=== PATIENT | male | born 1960 | race Caucasian/White ===

== ENCOUNTER 2017-05-26 21:04 | Inpatient (IN) ==
[2017-05-26] MEDS ORDERED: cefTRIAXone 1,000 MG in SODIUM CHLORIDE 0.9% 100 ML IV STA (22:27)
--- NOTE | 2017-05-26 22:28 | Emergency Department Note ---
IBelinda Mantricia, am scribing for, and in the presence of, Nilsa Llanos DO 22:02. IViet Debra, DO, personally performed the services described in this documentation, ascribed by Jeannette Trevino in my presence, and it is both accurate and complete . Arrival - Arrival Chief Complaint: Non-Specific Stated Complaint: staph infection ED Nursing Triage Note: TO ER PER WC WITH C/O POSSIBLE STAPH INFECTION TO LEFT KNEE. STATES STARTED 3 DAYS AGO, THINKS MAYBE STARTED A POSSIBLE SPIDER BITE. REPORTS HAS HAD STAPH IN THE PAST AND IS PRONE TO GETTING STAPH INFECTIONS SINCE. LEFT KNEE SWOLLEN AND RED. HALF DOLLAR SIZE WOUND TO LEFT KNEE NOTED. PATIENT REPORTS WOUND STARTED DRAINING TODAY AND HAS GONE DOWN IN SIZE SOME SINCE THEN. Mode of Arrival: Wheelchair Limitations: No Limitations Source: Patient - History of Present Illness HPI Narrative: Pt is a 57 y/o white male arriving to ED via wheelchair with c/o left knee wound that onset 3 days ago. He reports that 3 days ago he had a small bump on his knee and what now has turned into a half dollar size wound. He states that it looks way better now than it did earlier today; it has begun to drain and the swelling has went down. Pt has a Hx of staph infection and reports that he thinks he has had another flare up. Pt was hospitalized 2 months ago with staph. He denies a PMHx of DM. He admits to having no PCP. No other complaints were reported to ED. Onset (ago): day(s) Consistency: constant Severity: mild Allergies/Adverse Reactions: Allergies Allergy/AdvReac Type Severity Reaction Status Date / Time Sulfa (Sulfonamide Allergy Severe Fever Verified 06/02/17 14:46 Antibiotics) Home Medications: Home Medications Medication Instructions Recorded Confirmed Type Clindamycin Cap [Cleocin Cap] 300 mg PO TID #21 capsule 06/03/17 Rx HYDROcodone/ACETAMIN 5-325 [[place] 1 tablet PO Q6H PRN #10 tablet 06/03/17 Rx 5-325] Review of System - Review of System Constitutional: Absent: chills, diaphoresis, fever Respiratory: Absent: cough Cardiovascular: Absent: chest pain Gastrointestinal: Absent: abdominal pain, nausea, vomiting, diarrhea Musculoskeletal: Present: leg pain (left knee). Absent: arm pain, back pain, neck pain Skin: Present: other (possible staph on left knee). Absent: rash, lesions Medical,Surgical,& Family Hx - Social History Smoking Status: Current every day smoker Frequency of Alcohol Use: Occasionally Type of Drug Use: None Exam Vital Signs: Vital Signs Temperature 97.8 F 06/03/17 11:20 Pulse Rate 54 L 06/03/17 11:20 Respiratory Rate 18 06/03/17 11:20 Blood Pressure 103/60 06/03/17 11:20 O2 Sat by Pulse Oximetry 96 06/03/17 11:20 - General General appearance: alert, in no apparent distress - Head Head exam: Present: atraumatic, normocephalic, normal inspection - Eye Eye exam: Present: normal appearance, PERRL, EOMI - ENT ENT exam: Present: normal exam, normal oropharynx, mucous membranes moist, TM's normal bilaterally, normal external ear exam - Neck Neck exam: Present: normal inspection, full ROM, trachea midline. Absent: tenderness - Chest Chest inspection: Present: normal inspection, symmetric chest wall rise. Absent : tenderness - Respiratory Respiratory exam: Present: normal lung sounds bilaterally - Cardiovascular Cardiovascular exam: Present: regular rate, normal rhythm, normal heart sounds - Abdominal Exam Abdominal exam: Present: soft, normal bowel sounds. Absent: distention, tenderness, guarding, rebound - Expanded Lower Left Lower Hip/Pelvis exam: Present: normal inspection Upper leg exam: Present: normal inspection Knee exam: Present: tenderness, swelling, erythema (with drainage), other (palm size wound) Lower leg exam: Present: normal inspection Ankle exam: Present: normal inspection Foot/toe exam: Present: normal inspection - Back Exam Back exam: Present: normal inspection, full ROM. Absent: tenderness - Neurological Exam Neurological exam: Present: alert, oriented X3, CN II-XII intact, normal gait, reflexes normal - Psychiatric Psychiatric exam: Present: normal affect, normal mood - Skin Skin exam: Present: warm, dry, intact, normal color Results - Labs CBC & BMP: 06/03/17 04:32 06/03/17 04:32 Disposition Case discussed with: patient Disposition: Still a Patient Condition: Stable New Prescriptions: Rx's Medication Instructions Recorded Clindamycin Cap [Cleocin Cap] 300 mg PO TID #21 capsule 06/03/17 HYDROcodone/ACETAMIN 5-325 [[place] 1 tablet PO Q6H PRN #10 tablet 06/03/17 5-325]
[2017-05-26] MEDS ORDERED: cefTRIAXone 1,000 MG VIAL ONE (22:30)
[2017-05-26 23:08] LABS: Basophils # 0.1 10*3/uL (0.0-0.2); Basophils % 0.5 % (0.0-0.8); Eosinophils # 0.1 10*3/uL (0.0-0.87); Eosinophils % 0.6 % (0.00-10.9); Hematocrit 45.9 VOL% (42.0-52.0); Hemoglobin 16.1 GM/DL (14.0-18.0); Immature Granulocytes % 0.5 %; Immature Granulocytes Absolute 0.07 #; Lymphocytes % 15.2 % (21.2-54.2); Mean Corpuscular HGB Conc 35.1 GM/DL (32-36); Mean Corpuscular Hemoglobin 31 PG (27-34); Mean Platelet Volume 10.3 FL (9.6-12.0); Monocytes # 1.6 10*3/uL (0.11-0.8); Neutrophils # 9.2 10*3/uL (1.4-7.4); Neutrophils % 71.2 % (38.7-73.9); Platelet Count 196 T/CUMM (130-400); Red Blood Count 5.16 MC/CUMM (3.8-5.5); Red Cell Distribution Width 14.6 % (9.3-17.3); White Blood Count 12.9 T/CUMM (4-12)
[2017-05-26] MEDS ORDERED: HYDROmorphone 2 MG/1 ML VIAL ONE (23:25)
[2017-05-26] MEDS ORDERED: ONDANSETRON 4 MG/2 ML VIAL ONE (23:25)
[2017-05-26] MEDS: HYDROmorphone 2 MG/1 ML VIAL IV STA (23:26)
[2017-05-26] MEDS: ONDANSETRON 4 MG/2 ML VIAL IV STA (23:26)
[2017-05-26 23:33] LABS: Bilirubin,Total 0.8 MG/DL (0.2-1.0); Calcium 8.5 MG/DL (8.5-10.1); Osmolality,Calculated 267.2 MOS/KG (273-304); Potassium 3.6 MMOL/L (3.5-5.1)
[2017-05-26] MEDS ORDERED: ONDANSETRON 4 MG/2 ML VIAL IV PRN (23:52)
[2017-05-27] MEDS ORDERED: ACETAMINOPHEN 325 MG TABLET PO ONE (00:01)
--- NOTE | 2017-05-27 00:14 | Hospitalist History & Physical ---
Assessment and Plan (1) Cellulitis of knee Status: Acute Assessment and plan: Our plan for this patient will be admitting him to our service. I will start him on teflora. I will consult orthopedics for their evaluation. I will recheck labs in the morning. Current Visit: Yes History of Present Illness Chief complaint: Knee pain and erythema History of present illness: Mr. Hannah is a 57 year old male with no past medical history presents to our ER complaining about erythematous swollen knee. Patient did report a history of 2 other episodes of staph infections but has no chronic medical problems. He says approximately 3 days ago he noticed a bump on his knee. He did not think much about it at that time and it became red and swollen. He had a abscess on it that burst and has been draining ever since. He reports it is been very painful when he tries to stand. He reports limited range of motion of his knee. I was consulted to admit him through the emergency room. Allergies Allergy/AdvReac Type Severity Reaction Status Date / Time No Known Allergies Allergy Verified 05/26/17 21:30 Medical,Surgical,& Family Hx - Medical History Medical History: noncontributory (None) - Surgical History Surgical History: noncontributory (none) - Family History Family History: Reports;: Family Heart Disease - Social History Smoking Status: Current every day smoker Frequency of Alcohol Use: Occasionally Type of Drug Use: None 12 point system: reviewed and no additional remarkable complaints except as stated Exam - Constitutional Vitals: Period Temp Pulse Resp BP Sys/Metz Pulse Ox Last 24 Hr 99.7 F-99.7 F 93-93 18-18 113-113/73-73 97 General appearance: normal weight - Head Head exam: Present: normal inspection - Eye Eye exam: Present: EOMI Pupils: Present: ROSHNI - ENT ENT exam: Present: normal exam - Neck Neck exam: Present: normal inspection - Respiratory Respiratory exam: Present: clear to auscultation bilaterally - Cardiovascular Cardiovascular exam: Present: regular rate and rhythm - GI/Abdominal GI/Abdominal exam: Present: normal bowel sounds - Extremities Exam Extremities exam: Present: other (Patient's rightknee is swollen. It is erythematous. It has a area approximately the size of a 4 cm that is draining) - Back Exam Back exam: Present: normal inspection - Neurological Exam Neurological exam: Present: alert, oriented X3 - Psychiatric Psychiatric exam: Present: normal affect, normal mood Results - Labs CBC & BMP: 05/26/17 22:59 05/26/17 22:59
[2017-05-27] MEDS: ONDANSETRON 4 MG/2 ML VIAL IV STA (01:03)
[2017-05-27] MEDS: HYDROmorphone 2 MG/1 ML VIAL IV STA (01:04)
[2017-05-27] MEDS ORDERED: ACETAMINOPHEN 325 MG TABLET ONE (01:06)
--- NOTE | 2017-05-27 06:41 | XRay Report ---
Exam: XR knee 2V LT Date: 05/26/2017 10:25 PM Indication: Knee pain swelling Comparison: None Technical: AP lateral Findings: Soft tissue swelling is present. The distal femur proximal tibia and fibula reveal no fractures. Slight medial joint space narrowing and patellofemoral joint space narrowing is present. Tiny joint effusion present. Impression: 1. No fracture dislocation 2. Soft tissue swelling with small joint effusion 3. Mild degenerative arthritic changes PROCEDURE INTERPRETED AT [facility] DEPARTMENT OF RADIOLOGY Final Report Signed by: Dr. Elvis Mcfarland
[2017-05-27 07:43] LABS: Basophils # 0.1 10*3/uL (0.0-0.2); Basophils % 0.7 % (0.0-0.8); Eosinophils # 0.2 10*3/uL (0.0-0.87); Eosinophils % 2.1 % (0.00-10.9); Hemoglobin 13.7 GM/DL (14.0-18.0); Immature Granulocytes % 0.4 %; Immature Granulocytes Absolute 0.05 #; Lymphocytes # 1.9 10*3/uL (1.4-4.0); Lymphocytes % 16.5 % (21.2-54.2); Mean Corpuscular HGB Conc 34.3 GM/DL (32-36); Mean Corpuscular Hemoglobin 31 PG (27-34); Mean Corpuscular Volume 89.7 FL (87-102); Mean Platelet Volume 12.2 FL (9.6-12.0); Monocytes # 1.6 10*3/uL (0.11-0.8); Neutrophils # 7.4 10*3/uL (1.4-7.4); Neutrophils % 66.3 % (38.7-73.9); Platelet Count 163 T/CUMM (130-400); Red Blood Count 4.46 MC/CUMM (3.8-5.5); Red Cell Distribution Width 14.6 % (9.3-17.3); White Blood Count 11.2 T/CUMM (4-12)
[2017-05-27 08:13] LABS: Calcium 8.4 MG/DL (8.5-10.1); Osmolality,Calculated 270.8 MOS/KG (273-304); Potassium 3.5 MMOL/L (3.5-5.1)
[2017-05-27] MEDS: PANTOPRAZOLE 40 MG TABLET PO SCH (08:32)
[2017-05-27] MEDS: CEFTAROLINE 600 MG in SODIUM CHLORIDE 0.9% 100 ML IV SCH ×2 (09:01→20:53)
--- NOTE | 2017-05-27 13:44 | Orthopedic Consult Note ---
History of Present Illness Chief complaint: Cellulitis left knee History of present illness: Mr. Hannah is a 57 year old male whom I was asked to see because of a cellulitis in the left knee. this had its onset about 4 days earlier. The patient did not recall any specific event. However, he works around [employer] and get scraped and abraded a lot. He also has a past history of staph infections to in the recent year or so 1 of which was a few months ago. Over the last 3 days it got worse and he presented to [facility] yesterday evening and was admitted and placed on IV antibiotics. Initially Rocephin in the emergency room and then switched to Teflaro IV every 12 hours. Patient states that his knee seems better than yesterday because it spontaneously started draining. Past history: He lost the tip of his right thumb in a saw injury. 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 Says it is difficult for him to get a regular job because of being blind in one. Review of systems: Recurrent staph infections. No known diabetes. Orthopedic examination: Most recent temp is 100.4. He has an area of skin eruption 2.5 cm in diameter directly over the left patella surrounding that he has a zone of erythema 5 cm in diameter. There is some mild tissue puffiness but no effusion and nothing to suggest extension of the infection into the joint. No significant lymphadenopathy on that side Impression: Cellulitis left knee Recommendations and discussion 1 at the moment I see no abscess formation or significant extension of the infection into the joint. Thus I do not see a surgical indication currently. 2. He is on ideal antibiotic management 3 we will check his cultures have been done 4 we will follow and if abscess formation develops, there is an effusion indicating extension into the joint, or worsening of the insect infection we would consider surgical drainage but for the moment we will continue antibiotic therapy Allergies Allergy/AdvReac Type Severity Reaction Status Date / Time No Known Allergies Allergy Verified 05/26/17 21:30 Medical,Surgical,& Family Hx - Medical History HEENT: History of: Ear Problem (deaf in left ear), Eye Problem (blind in right eye) - Family History Family History: Reports;: Family Heart Disease - Social History Smoking Status: Current every day smoker Frequency of Alcohol Use: Occasionally Type of Drug Use: None Exam - Constitutional Vitals: Period Temp Pulse Resp BP Sys/Mezt Pulse Ox Last 24 Hr 97.9 F-100.4 F 60-93 18-20 99-115/61-73 93-99 Results - Labs CBC & BMP: 05/27/17 07:06 05/27/17 07:06
--- NOTE | 2017-05-28 08:34 | Orthopedic Progress Note ---
Orthopedics - Subjective Interval history: The patient is alert and oriented. His maximum temperature for 24 hours is remaining under 100 and is steadily falling. His knee feels better. Zone of erythema about the left knee is diminishing. There is no evidence of a joint effusion which would indicate deep infection. Impression: Cellulitis left knee responding to antibiotics Recommendations: Continue IV antibiotics. He is not well enough to be discharged on oral antibiotics. No surgical indications at the moment Exam - Constitutional Vitals: Period Temp Pulse Resp BP Sys/Metz Pulse Ox Last 24 Hr 97.5 F-100.7 F 70-81 15-20 99-108/58-70 93-100 Results - Labs CBC & BMP: 05/27/17 07:06 05/27/17 07:06
[2017-05-28] MEDS: CEFTAROLINE 600 MG in SODIUM CHLORIDE 0.9% 100 ML IV SCH ×2 (09:46→21:28)
[2017-05-28] MEDS: PANTOPRAZOLE 40 MG TABLET PO SCH (09:46)
[2017-05-28] MEDS: ENOXAPARIN 40 MG/0.4 ML SYRINGE SUBCUT SCH (09:46)
--- NOTE | 2017-05-28 14:31 | Hospitalist Progress Note ---
Hospitalist: Subjective Interval history: The patient was admitted admitted with cellulitis of the left knee. He reports less swelling and pain in the left knee with IV antibiotics. Exam - Constitutional Vitals: Period Temp Pulse Resp BP Sys/Metz Pulse Ox Last 24 Hr 97.5 F-100.7 F 70-81 15-20 99-108/58-70 93-100 Exam: General: No Acute Distress HEENT: Normocephalic, atraumatic, Extra ocular movements intact Neck: Supple, No JVD Chest: Clear to auscultation B/L CV: S1 + S2 audible without murmur, gallop or rub Abd: soft, NT, Non-distended, BS + Ext: No edema Skin: Area of cellulitis involving left knee Rheumatologic: No Joint deformities Neurologic: Strength 5/5 all extremities, no gross sensory deficits Results - Labs CBC & BMP: 05/27/17 07:06 05/27/17 07:06 - Impressions Assessment and Plan (1) Cellulitis of knee Status: Acute Current Visit: Yes Assessment and plan: Continue IV Teflaro as patient is responding to it DVT prophylaxis with Lovenox SC
--- NOTE | 2017-05-29 07:34 | Orthopedic Progress Note ---
Orthopedics - Subjective Interval history: Patient is alert and oriented and pleasant. He is definitely improving He has remained afebrile for the last 48 hours The zone of erythema on his right knee continues to diminish it is now about 3.5 cm in diameter with some crusty debris in the center over the patella. However there is no knee effusion and there is no obvious major abscess formation Plan: Continue IV antibiotics Discussed using Hibiclens at home for bathing and staff prophylaxis If he continues to improve and Dr. Kaur may be able to discharge him tomorrow Exam - Constitutional Vitals: Period Temp Pulse Resp BP Sys/Metz Pulse Ox Last 24 Hr 98.0 F-98.8 F 67-78 18-20 99-118/63-75 93-99 Results - Labs CBC & BMP: 05/27/17 07:06 05/27/17 07:06
[2017-05-29] MEDS: CEFTAROLINE 600 MG in SODIUM CHLORIDE 0.9% 100 ML IV SCH ×2 (09:15→20:04)
[2017-05-29] MEDS: ENOXAPARIN 40 MG/0.4 ML SYRINGE SUBCUT SCH (09:17)
[2017-05-29] MEDS: PANTOPRAZOLE 40 MG TABLET PO SCH (09:17)
--- NOTE | 2017-05-29 17:00 | Hospitalist Progress Note ---
Hospitalist: Subjective Interval history: 70-year-old white male with left knee cellulitis. He reports decreased swelling and improvement today Exam - Constitutional Vitals: Period Temp Pulse Resp BP Sys/Metz Pulse Ox Last 24 Hr 97.0 F-99.1 F 67-76 18-20 110-122/66-77 96-99 Exam: General: No Acute Distress HEENT: Normocephalic, atraumatic, Extra ocular movements intact Neck: Supple, No JVD Chest: Clear to auscultation B/L CV: S1 + S2 audible without murmur, gallop or rub Abd: soft, NT, Non-distended, BS + Ext: No edema Skin: Area of cellulitis involving left knee Rheumatologic: No Joint deformities Neurologic: Strength 5/5 all extremities, no gross sensory deficits Results - Labs CBC & BMP: 05/27/17 07:06 05/27/17 07:06 - Impressions Assessment and Plan (1) Cellulitis of knee Status: Acute Current Visit: Yes Assessment and plan: Continue IV Teflaro as patient is responding to it. Wound cultures are growing staph, however final report is pending. DVT prophylaxis with Lovenox SC
[2017-05-30 06:27] LABS: Basophils # 0.1 10*3/uL (0.0-0.2); Basophils % 1.1 % (0.0-0.8); Eosinophils # 0.9 10*3/uL (0.0-0.87); Eosinophils % 10.4 % (0.00-10.9); Hematocrit 38.9 VOL% (42.0-52.0); Hemoglobin 13.4 GM/DL (14.0-18.0); Immature Granulocytes % 0.5 %; Immature Granulocytes Absolute 0.04 #; Lymphocytes # 2.4 10*3/uL (1.4-4.0); Lymphocytes % 27.1 % (21.2-54.2); Mean Corpuscular HGB Conc 34.4 GM/DL (32-36); Mean Corpuscular Hemoglobin 31 PG (27-34); Mean Corpuscular Volume 89.2 FL (87-102); Mean Platelet Volume 10.7 FL (9.6-12.0); Monocytes % 11.5 % (1.7-12.7); Neutrophils # 4.4 10*3/uL (1.4-7.4); Neutrophils % 49.4 % (38.7-73.9); Platelet Count 307 T/CUMM (130-400); Red Blood Count 4.36 MC/CUMM (3.8-5.5); Red Cell Distribution Width 14.6 % (9.3-17.3); White Blood Count 8.9 T/CUMM (4-12)
[2017-05-30 07:02] LABS: Calcium 8.8 MG/DL (8.5-10.1); Osmolality,Calculated 277.3 MOS/KG (273-304); Potassium 3.9 MMOL/L (3.5-5.1)
--- NOTE | 2017-05-30 07:32 | Orthopedic Progress Note ---
Orthopedics - Subjective Interval history: Taking over care from Dr. Mclean. Patient has infected prepatellar bursitis tolerating about 60 active range of motion and erythema has improved however he still draining purulent material from his fluctuant prepatellar bursa. I recommended formal I&D I do not believe recommend sending him home on p.o. think he will likely reaccumulated and return. I discussed with him the need to formally I&D most likely allowing the wound to heal secondarily with wet-to- dry dressing changes postoperatively. He appears to understand and agree Exam - Constitutional Vitals: Period Temp Pulse Resp BP Sys/Metz Pulse Ox Last 24 Hr 97.0 F-99.2 F 60-76 18-20 109-130/63-77 95-97 Results - Labs CBC & BMP: 05/30/17 06:05 05/30/17 06:05
[2017-05-30] MEDS: PANTOPRAZOLE 40 MG TABLET PO SCH (08:50)
[2017-05-30] MEDS: CEFTAROLINE 600 MG in SODIUM CHLORIDE 0.9% 100 ML IV SCH ×2 (08:50→20:35)
[2017-05-30] MEDS: ENOXAPARIN 40 MG/0.4 ML SYRINGE SUBCUT SCH (08:55)
[2017-05-30] MEDS ORDERED: PROPOFOL 200 MG/20 ML VIAL IV ONE ×2 (13:16→15:08)
[2017-05-30] MEDS ORDERED: ONDANSETRON 4 MG/2 ML VIAL ONE ×2 (13:16→15:09)
[2017-05-30] MEDS ORDERED: LIDOCAINE 1% 5 ML VIAL ONE (13:16)
[2017-05-30] MEDS ORDERED: ONDANSETRON 4 MG/2 ML VIAL IV PRN (14:36)
[2017-05-30] MEDS ORDERED: HYDROmorphone 2 MG/1 ML VIAL IV PRN (14:36)
[2017-05-30] MEDS ORDERED: LACTATED RINGERS 1,000 ML IV SCH (15:00)
[2017-05-30] MEDS ORDERED: SEVOFLURANE 1 UNIT/15 MINUTE INH ONE (15:08)
[2017-05-30] MEDS ORDERED: MIDAZOLAM 2 MG/2 ML VIAL ONE (15:08)
[2017-05-30] MEDS ORDERED: fentaNYL 100 MCG/2 ML VIAL ONE (15:09)
[2017-05-30] MEDS: HYDROmorphone 2 MG/1 ML VIAL IV PRN ×2 (16:07→20:35)
--- NOTE | 2017-05-30 16:25 | Hospitalist Progress Note ---
Assessment and Plan (1) Prepatellar abscess Status: Acute Assessment and plan: The patient has prepatellar abscess and this was debrided by Dr. Kaur today. We will continue with IV antibiotics. Current Visit: Yes Hospitalist: Subjective Interval history: The patient has an infection of the prepatellar bursa. The patient had debridement of the prepatellar bursa today by Dr. Kaur. Exam - Constitutional Vitals: Period Temp Pulse Resp BP Sys/Metz Pulse Ox Last 24 Hr 97.0 F-99.2 F 52-71 14-24 109-130/63-93 95-100 General appearance: mild distress - Respiratory Respiratory exam: Present: clear to auscultation bilaterally - Cardiovascular Cardiovascular exam: Present: regular rate and rhythm - GI/Abdominal GI/Abdominal exam: Present: normal bowel sounds Results - Labs CBC & BMP: 05/30/17 06:05 05/30/17 06:05 Lab Results: I have reviewed the past 24 hour labs
--- NOTE | 2017-05-30 16:49 | Anesthesia Post-Op ---
Anesthesia Post OP - Post Ansesthetic Evaluation Patient seen in post op: Yes Resp: within normal limits CV: within normal limits Mental: within normal limits Temp: within normal limits [id number]: within normal limits Nausea and Vomiting: within normal limits Pain: within normal limits
[2017-05-30] MEDS: VANCOMYCIN INJ 1,250 MG in SODIUM CHLORIDE 0.9% 250 ML IV SCH (18:03)
[2017-05-31] MEDS: VANCOMYCIN INJ 1,250 MG in SODIUM CHLORIDE 0.9% 250 ML IV SCH ×3 (00:28→17:35)
[2017-05-31] MEDS: HYDROmorphone 2 MG/1 ML VIAL IV PRN ×4 (00:31→18:41)
[2017-05-31 06:55] LABS: Basophils # 0.1 10*3/uL (0.0-0.2); Eosinophils # 0.7 10*3/uL (0.0-0.87); Eosinophils % 7.3 % (0.00-10.9); Hemoglobin 13.2 GM/DL (14.0-18.0); Immature Granulocytes % 0.6 %; Immature Granulocytes Absolute 0.06 #; Lymphocytes # 2.5 10*3/uL (1.4-4.0); Mean Corpuscular HGB Conc 33.8 GM/DL (32-36); Mean Corpuscular Hemoglobin 31 PG (27-34); Mean Platelet Volume 9.9 FL (9.6-12.0); Monocytes % 10.9 % (1.7-12.7); Neutrophils % 53.2 % (38.7-73.9); Platelet Count 313 T/CUMM (130-400); Red Blood Count 4.24 MC/CUMM (3.8-5.5); Red Cell Distribution Width 14.8 % (9.3-17.3); White Blood Count 9.4 T/CUMM (4-12)
[2017-05-31 07:24] LABS: Calcium 8.8 MG/DL (8.5-10.1); Magnesium 2.1 MG/DL (1.8-2.4)
[2017-05-31 07:25] LABS: Osmolality,Calculated 280.3 MOS/KG (273-304); Potassium 4.5 MMOL/L (3.5-5.1)
--- NOTE | 2017-05-31 07:27 | Operative Note ---
PREOPERATIVE DIAGNOSIS: INFECTED PREPATELLAR BURSA, LEFT KNEE. POSTOPERATIVE DIAGNOSIS: INFECTED PREPATELLAR BURSA, LEFT KNEE. OPERATIVE PROCEDURE: INCISION AND DRAINAGE, LEFT KNEE. SURGEON: Jl Kaur Jr., M.D. ANESTHESIA: General. OPERATIVE PROCEDURE: The patient in the operating room and under general anesthetic positioned in th e supine position. The left lower extremity prepped and draped in a usual sterile manner. An incisi on was made approximately 3 to 4 cm incorporating the draining track allowed exposure to the prepatel lar bursal area which was infected. All this was debrided, clean and irrigated with bulb syringe and packed open. Tourniquet was inflated to approximately 15 minutes. Sterile dressing was applied. H wenceslao was taken to the recovery room in stable condition. Cultures were obtained and sent.
[2017-05-31 07:42] LABS: Eosinophils 3 % (0-10); Hypochromasia 1+; Lymphocytes 27 % (20-55); Nucleated Red Blood Cells 1 (0-5); Segmented Neutrophils 59 % (50-85); Total Cells Counted 100
[2017-05-31 07:43] LABS: Microcytosis Slight; Platelet Estimate Normal
[2017-05-31] MEDS: PANTOPRAZOLE 40 MG TABLET PO SCH (09:05)
[2017-05-31] MEDS: ENOXAPARIN 40 MG/0.4 ML SYRINGE SUBCUT SCH (09:14)
[2017-05-31] MEDS: CEFTAROLINE 600 MG in SODIUM CHLORIDE 0.9% 100 ML IV SCH ×2 (09:14→21:42)
--- NOTE | 2017-05-31 10:14 | Orthopedic Progress Note ---
Orthopedics - Subjective Interval history: Comfortable we will start wet-to-dry dressing changes left knee instructed once capable of doing it he can be discharged likely within the next day or 2 Exam - Constitutional Vitals: Period Temp Pulse Resp BP Sys/Metz Pulse Ox Last 24 Hr 97.0 F-98.2 F 52-77 12-22 97-123/63-93 94-100 Results - Labs CBC & BMP: 05/31/17 06:47 05/31/17 06:47
--- NOTE | 2017-05-31 13:56 | Hospitalist Progress Note ---
Assessment and Plan (1) Prepatellar abscess Status: Acute Assessment and plan: The patient has prepatellar abscess and this was debrided by Dr. Kaur yesterday. We will continue with IV antibiotics. Current Visit: Yes Hospitalist: Subjective Interval history: The patient has less pressure and swelling within the right leg. The patient had incision and drainage of left prepatellar bursa abscess yesterday. Exam - Constitutional Vitals: Period Temp Pulse Resp BP Sys/Metz Pulse Ox Last 24 Hr 97.0 F-98.2 F 52-77 12-20 97-123/63-93 94-100 General appearance: mild distress - Respiratory Respiratory exam: Present: clear to auscultation bilaterally - Cardiovascular Cardiovascular exam: Present: regular rate and rhythm Results - Labs CBC & BMP: 05/31/17 06:47 05/31/17 06:47 Lab Results: I have reviewed the past 24 hour labs
[2017-06-01] MEDS: VANCOMYCIN INJ 1,250 MG in SODIUM CHLORIDE 0.9% 250 ML IV SCH ×3 (02:47→16:17)
[2017-06-01] MEDS: CEFTAROLINE 600 MG in SODIUM CHLORIDE 0.9% 100 ML IV SCH (08:59)
[2017-06-01] MEDS: PANTOPRAZOLE 40 MG TABLET PO SCH (09:09)
[2017-06-01] MEDS: ENOXAPARIN 40 MG/0.4 ML SYRINGE SUBCUT SCH (09:09)
[2017-06-01] MEDS: HYDROmorphone 2 MG/1 ML VIAL IV PRN (09:21)
[2017-06-01] MEDS ORDERED: SULFAMETHOX/TRIMETHOPRIM 800-160 MG TABLET PO SCH (09:30)
--- NOTE | 2017-06-01 13:57 | Hospitalist Progress Note ---
Assessment and Plan (1) Prepatellar abscess Status: Acute Assessment and plan: The patient has prepatellar abscess and this was debrided by Dr. Kaur yesterday. We will continue with IV vancomycin. I am going to change Septra to 1 double strength tablet every 6 hours and consider discharge home tomorrow if tolerated. Current Visit: Yes Hospitalist: Subjective Interval history: The patient is improving after his I&D of abscess yesterday. The patient is having nausea after taking 2 double strength Septra. I am going to reduce to 1 double strength tablet every 6 hours. Exam - Constitutional Vitals: Period Temp Pulse Resp BP Sys/Metz Pulse Ox Last 24 Hr 97.5 F-98.6 F 54-61 17-18 107-130/73-81 89-98 General appearance: mild distress - Respiratory Respiratory exam: Present: clear to auscultation bilaterally Results - Labs CBC & BMP: 05/31/17 06:47 05/31/17 06:47 Lab Results: I have reviewed the past 24 hour labs
[2017-06-01] MEDS: SULFAMETHOX/TRIMETHOPRIM 800-160 MG TABLET PO SCH ×2 (14:46→19:24)
[2017-06-01] MEDS: ACETAMINOPHEN 325 MG TABLET PO PRN ×2 (16:16→21:06)
[2017-06-01] MEDS ORDERED: IBUPROFEN 600 MG TABLET PO PRN (21:51)
[2017-06-01] MEDS: CLINDAMYCIN INJ 600 MG in PREMIX 1 EACH IV SCH (22:07)
--- NOTE | 2017-06-01 22:28 | Event Note ---
I was called to see Mr. Hannah this evening due to persistent fever and some hypotension. The patient is hospitalized with MRSA abscess of the knee. Medications have been reviewed. He has been refusing his Bactrim due to nausea and upset stomach. I reviewed his culture which shows MRSA sensitive to vancomycin with an KATHI of 2. I have started clindamycin IV since the vancomycin may not be adequate and he is refusing Bactrim. I also added Motrin for his fevers which have not responded to Tylenol. He is not tachycardic despite his borderline hypotension. Mental status is clear. He complains of nausea with no vomiting. He is febrile and warm to touch. Knee dressing has been changed by the nurse during this shift. We will continue to watch closely and monitor heart rate and blood pressure.
[2017-06-02] MEDS: VANCOMYCIN INJ 1,250 MG in SODIUM CHLORIDE 0.9% 250 ML IV SCH (01:30)
[2017-06-02] MEDS: SULFAMETHOX/TRIMETHOPRIM 800-160 MG TABLET PO SCH (02:20)
[2017-06-02] MEDS: CLINDAMYCIN INJ 600 MG in PREMIX 1 EACH IV SCH ×3 (05:14→21:04)
[2017-06-02 05:41] LABS: Basophils % 0.2 % (0.0-0.8); Eosinophils # 0.4 10*3/uL (0.0-0.87); Eosinophils % 2.5 % (0.00-10.9); Hematocrit 36.4 VOL% (42.0-52.0); Hemoglobin 12.8 GM/DL (14.0-18.0); Immature Granulocytes % 3.2 %; Immature Granulocytes Absolute 0.55 #; Lymphocytes # 0.6 10*3/uL (1.4-4.0); Lymphocytes % 3.7 % (21.2-54.2); Mean Corpuscular HGB Conc 35.2 GM/DL (32-36); Mean Corpuscular Hemoglobin 31 PG (27-34); Mean Corpuscular Volume 88.8 FL (87-102); Mean Platelet Volume 10.8 FL (9.6-12.0); Monocytes # 0.6 10*3/uL (0.11-0.8); Monocytes % 3.3 % (1.7-12.7); Neutrophils # 14.8 10*3/uL (1.4-7.4); Neutrophils % 87.1 % (38.7-73.9); Platelet Count 330 T/CUMM (130-400); Red Cell Distribution Width 14.8 % (9.3-17.3)
[2017-06-02 06:16] LABS: Calcium 8.2 MG/DL (8.5-10.1); Magnesium 1.8 MG/DL (1.8-2.4); Osmolality,Calculated 272.1 MOS/KG (273-304); Potassium 4.1 MMOL/L (3.5-5.1)
[2017-06-02 06:19] LABS: Band Neutrophils 12 % (0-10); Eosinophils 1 % (0-10); Hypochromasia 1+; Lymphocytes 9 % (20-55); Platelet Estimate Adequate; Segmented Neutrophils 74 % (50-85); Target Cells Slight; Total Cells Counted 100
[2017-06-02] MEDS ORDERED: SODIUM CHLORIDE 0.9% 2,000 ML IV ONE (07:02)
--- NOTE | 2017-06-02 10:01 | Orthopedic Progress Note ---
Orthopedics - Subjective Interval history: Wound looks good very superficial granulating tolerating wet-to-dry dressing changes and seems to be instructed well most likely home soon follow-up me in 2 weeks for wound check Exam - Constitutional Vitals: Period Temp Pulse Resp BP Sys/Metz Pulse Ox Last 24 Hr 97.5 F-102.4 F 58-103 15-20 73-119/45-78 93-100 Results - Labs CBC & BMP: 06/02/17 04:35 06/02/17 04:35
[2017-06-02] MEDS: ENOXAPARIN 40 MG/0.4 ML SYRINGE SUBCUT SCH (10:20)
[2017-06-02] MEDS: PANTOPRAZOLE 40 MG TABLET PO SCH (10:20)
--- NOTE | 2017-06-02 13:59 | Hospitalist Progress Note ---
Assessment and Plan (1) Prepatellar abscess Status: Acute Assessment and plan: The patient has prepatellar abscess and this was debrided by Dr. Kaur Tuesday. We will continue with IV vancomycin. Septra has been discontinued and we hope that the skin redness will improve and he will be eligible for discharge home tomorrow on oral clindamycin. Current Visit: Yes Hospitalist: Subjective Interval history: Mr. Hannah has now developed a red rash consistent with sulfa allergy. The patient had been feeling well until sulfa was given with the first dose yesterday. The patient had immediate sensation of being unwell. He had nausea and would not take any further pills. He said he had staining of skin but was not red. The patient had fever and redness of skin and hypotension through the night. No further sulfa has been given. Will recheck examination tomorrow. I coordinated care with Dr. Kaur and he felt that the knee wound was healing nicely and was not the cause of the patient's fever. Exam - Constitutional Vitals: Period Temp Pulse Resp BP Sys/Metz Pulse Ox Last 24 Hr 98.6 F-102.4 F 71-103 15-20 73-156/45-94 93-100 General appearance: mild distress - Respiratory Respiratory exam: Present: clear to auscultation bilaterally - Cardiovascular Cardiovascular exam: Present: regular rate and rhythm - GI/Abdominal GI/Abdominal exam: Present: normal bowel sounds Results - Labs CBC & BMP: 06/02/17 04:35 06/02/17 04:35 Lab Results: I have reviewed the past 24 hour labs Specialty Discharge - Follow Up or Referrals Follow up with: Jl Kaur Jr., MD [Physician] - 06/15/17 9:00 am
--- NOTE | 2017-06-02 15:47 | Infectious Disease Consult ---
Assessment and Plan (1) Cellulitis of knee Status: Acute Current Visit: Yes (2) Prepatellar abscess Status: Acute Assessment and plan: MRSA was cultured and though the KATHI was to the patient has improved clinically on vancomycin. He experience an allergic reaction from the Bactrim with diffuse rash and I think the fever and hypotension were manifestations of the allergic reaction. Acute leukocytosis today which again I think is from an allergic reaction. Recommendations: Can continue vancomycin when the patient is in hospital but I agree that clindamycin can be given on discharge for 7-10 days. Can repeat CBC tomorrow to ensure WBC trending in the right direction. Sulfa to be added to patient's list of allergies. Thank you very much for the consult. Current Visit: Yes History of Present Illness Chief complaint: Left prepatellar bursitis History of present illness: Mr. Hannah is a 57 year old male who got a wound to left knee about 2 weeks ago. He got infected and there was worsening redness of the area C came to the hospital. He had I&D and was assessed as having prepatellar bursitis. He had been on vancomycin and yesterday Bactrim was added. The wound was said to be healthy pink granulating and he was actually supposed to be discharged home today however last night he became unwell with hypotension and fever. The patient felt as if the Bactrim was making him sick and so he refused to take anymore. This morning he noted that his skin was red. He didn't previously have any allergies that he knew of. I am asked to assist with antibiotic management. 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) - Family History Family History: Reports;: Family Heart Disease - Social History Smoking Status: Current every day smoker Frequency of Alcohol Use: Occasionally Type of Drug Use: None Infectious Disease Exam H&P - Constitutional Vitals: Vital Signs Temp Pulse Resp BP Pulse Ox 98.6 F 73 18 152/82 95 06/02/17 11:12 06/02/17 11:12 06/02/17 11:12 06/02/17 11:45 06/02/17 11:12 Intake and Output 06/01/17 06/02/17 06/02/17 23:59 07:59 15:59 Intake Total 780 / 780 300 / 300 2720 / 2720 Balance 780 / 780 300 / 300 2720 / 2720 Intake: IV 300 / 300 300 / 300 1999 Cleocin Inj 600 mg In 50 / 50 50 / 50 Premix 1 Each @ 100 mls/ hr IV Q8H CALVIN Rx#: [id number] Ns 2,000 ml @ 999 mls/hr 1999 IV BOLUS ONE Rx#: [id number] Vancomycin Inj 5,000 mg 250 / 250 250 / 250 In Ns 250 ml @ 250 mls/hr IV Q8H CALVIN Rx#: [id number] Oral 480 / 480 720 / 720 Other: Voiding Method Toilet Toilet Toilet # Voids 3 2 2 # Bowel Movements 2 1 Exam: General: Patient comfortable, eating candy HEENT: Mucous membranes pink and moist, anicteric acyanotic, ROSHNI, no oropharyngeal exudates Neck: Supple, no thyroid gland enlargement Respiratory system: Breath sounds vesicular, no crepitations or wheezes Cardiovascular: Normal S1 and S2, no murmurs appreciated Abdomen: Normal bowel sounds, soft nontender throughout, no organomegaly or mass Genitourinary: No suprapubic pain or bladder distention Extremities: Left knee bandaged Skin: Diffuse erythematous macular rash all over body less prominent on the legs Reports - Labs CBC & BMP: 06/02/17 04:35 06/02/17 04:35 Labs: Laboratory Results - last 24 hr 06/02/17 06/02/17 04:35 04:35 WBC 17.0 H D RBC 4.10 Hgb 12.8 L Hct 36.4 L MCV 88.8 MCH 31 MCHC 35.2 RDW 14.8 Plt Count 330 MPV 10.8 Neut % (Auto) 87.1 H Lymph % (Auto) 3.7 L Greene % (Auto) 3.3 Eos % (Auto) 2.5 Baso % (Auto) 0.2 Neut # (Auto) 14.8 H Lymph # (Auto) 0.6 L Greene # (Auto) 0.6 Eos # (Auto) 0.4 Baso # (Auto) 0.0 Total Counted 100 Immature Gran % 3.2 Nucleated RBC % 0.0 Immature Gran # 0.55 Segmented Neutrophils 74 Band Neutrophils 12 H Lymphocytes 9 L Monocytes 4 Eosinophils 1 Nucleated RBCs # 0.00 Platelet Estimate Adequate Immature Plt Fraction 0.0 Hypochromasia 1+ Target Cells Slight Sodium 135 L Potassium 4.1 Chloride 98 Carbon Dioxide 25 Anion Gap 16.1 H BUN 22 H Creatinine 1.60 H GFR Calculation 55 BUN/Creatinine Ratio 13.00 Glucose 91 Calculated Osmolality 272.1 L Calcium 8.2 L Magnesium 1.8 - Reports Microbiology: MRSE from 2 different tissue cultures from the left prepatellar area, blood cultures were negative Specialty Discharge - Follow Up or Referrals Follow up with: Jl Kaur Jr., MD [Physician] - 06/15/17 9:00 am
[2017-06-03] MEDS: CLINDAMYCIN INJ 600 MG in PREMIX 1 EACH IV SCH (05:15)
[2017-06-03 05:19] LABS: Basophils % 0.1 % (0.0-0.8); Eosinophils # 0.7 10*3/uL (0.0-0.87); Eosinophils % 8.7 % (0.00-10.9); Hematocrit 36.1 VOL% (42.0-52.0); Hemoglobin 12.3 GM/DL (14.0-18.0); Immature Granulocytes % 0.5 %; Immature Granulocytes Absolute 0.04 #; Lymphocytes # 1.5 10*3/uL (1.4-4.0); Lymphocytes % 18.3 % (21.2-54.2); Mean Corpuscular HGB Conc 34.1 GM/DL (32-36); Mean Corpuscular Hemoglobin 31 PG (27-34); Mean Corpuscular Volume 89.6 FL (87-102); Mean Platelet Volume 10.8 FL (9.6-12.0); Monocytes # 0.8 10*3/uL (0.11-0.8); Monocytes % 9.6 % (1.7-12.7); Neutrophils # 5.2 10*3/uL (1.4-7.4); Neutrophils % 62.8 % (38.7-73.9); Platelet Count 274 T/CUMM (130-400); Red Blood Count 4.03 MC/CUMM (3.8-5.5); Red Cell Distribution Width 15.2 % (9.3-17.3); White Blood Count 8.2 T/CUMM (4-12)
[2017-06-03 05:48] LABS: Calcium 8.3 MG/DL (8.5-10.1); Osmolality,Calculated 279.4 MOS/KG (273-304)
[2017-06-03 06:44] LABS: Band Neutrophils 2 % (0-10); Eosinophils 8 % (0-10); Hypochromasia 1+; Lymphocytes 17 % (20-55); Microcytosis 1+; Segmented Neutrophils 68 % (50-85); Total Cells Counted 100
--- NOTE | 2017-06-03 08:27 | Discharge Summary ---
Hospital Course - Hospital Course Hospital Course: The patient was admitted to the hospital with a prepatellar bursitis on the left -hand side. The patient had a draining wound. The wound cultured MRSA. The patient was treated with intravenous antibiotics but had little improvement in the first 3 days. The patient was taken for debridement with incision in the operating room. The wound was packed. The patient's wound is improving now and he is discharged home on clindamycin capsules. The patient was initially planned for discharge on sulfa but elicited early allergy symptoms of nausea and red rash. The rash is resolving now. On the date of discharge, chest is clear abdomen soft and heart has regular rate and rhythm. The patient was screened for tobacco and found to be a current smoker. He was given 4 minutes tobacco avoidance education. The patient's medicines were reconciled upon admission and again upon discharge. Discharge time required 32 minutes. The patient makes his own medical legal decisions and wish to be full code. - Time spent with patient Time with patient DS: Greater than 30 minutes Diagnosis - Discharge Diagnosis (1) Prepatellar abscess Status: Resolved Specialty Discharge - Follow Up or Referrals Follow up with: Jl Kaur Jr., MD [Physician] - 06/15/17 9:00 am Discharge Plan - Discharge Data Disposition: Disch To Home/Self Care Condition at Discharge: Stable Discharge Diet: advance to your usual diet Activity: resume usual activities as tolerated - Discharge Medications New HYDROcodone/ACETAMIN 5-325 [[place] 5-325] 1 tablet PO Q6H PRN #10 tablet PRN Reason: Pain Clindamycin Cap [Cleocin Cap] 300 mg PO TID #21 capsule - Follow Up or Referral Follow Up: Jl Kaur Jr., MD [Physician] - 06/15/17 9:00 am - Forms/Instructions Exam - Constitutional Vitals: Period Temp Pulse Resp BP Sys/Metz Pulse Ox Last 24 Hr 98.6 F-99.9 F 64-86 16-20 76-156/43-94 94-98 Discharge Results Labs on day of discharge: Labs from last 24 hours 06/03/17 06/03/17 04:32 04:32 WBC 8.2 D RBC 4.03 Hgb 12.3 L Hct 36.1 L MCV 89.6 MCH 31 MCHC 34.1 RDW 15.2 Plt Count 274 MPV 10.8 Neut % (Auto) 62.8 Lymph % (Auto) 18.3 L Lee % (Auto) 9.6 Eos % (Auto) 8.7 Baso % (Auto) 0.1 Neut # (Auto) 5.2 Lymph # (Auto) 1.5 Lee # (Auto) 0.8 Eos # (Auto) 0.7 Baso # (Auto) 0.0 Total Counted 100 Immature Gran % 0.5 Nucleated RBC % 0.0 Immature Gran # 0.04 Segmented Neutrophils 68 Band Neutrophils 2 Lymphocytes 17 L Monocytes 5 Eosinophils 8 Nucleated RBCs # 0.00 Immature Plt Fraction 0.0 Hypochromasia 1+ Microcytosis 1+ Morphology Comment Sodium 140 Potassium 4.0 Chloride 105 Carbon Dioxide 26 Anion Gap 13.0 BUN 16 Creatinine 1.30 GFR Calculation 71 BUN/Creatinine Ratio 12.00 Glucose 105 Calculated Osmolality 279.4 Calcium 8.3 L DS: Provider Date of admission: 05/26/17 23:52 Primary care physician: . No PCP Attending physician on admission: Driss Rodriguez MD Consults: 05/26/17 23:52 Consult to Physician [CONS] Routine Comment: knee cellulitis Consulting Provider: Fernando Mclean Consulting Provider Notified: Yes When should Consulting Provider be notified: Now Consult to Specialist Group: Orthopedic When should Consulting Provider be notified: In am Date Notified: 05/27/17 Time Notified: 08:17 Consult Notification Comment: alin in surgery called. faxed info to surgery about consult. Vibha called 05/30 @ 8:15 about consult 05/30/17 16:25 Consult to Pharmacy [CONS] Routine Reason for Pharmacy Consult: Dose/Manage Vancomycin Comment: Thank You! 05/31/17 10:14 Consult to Wound Care - [place] [CONS] Routine Reason for Wound Care: Wound Care Management Consult Comment: Instructed on wet-to-dry dressing changes twice daily left knee 06/02/17 07:28 Consult to Physician [CONS] Routine Comment: MRSA prepatellar abscess Consulting Provider: Anny Dupree Consulting Provider Notified: Yes When should Consulting Provider be notified: Now Person Notified: reynaldo called Date Notified: 06/02/17 Time Notified: 08:35 Discharging clinician: Fernando Johansen MD
[2017-06-03] MEDS: ENOXAPARIN 40 MG/0.4 ML SYRINGE SUBCUT SCH (10:00)
[2017-06-03] MEDS: PANTOPRAZOLE 40 MG TABLET PO SCH (10:00)
[2017-06-03 11:22] VITALS: BP 103/60
--- NOTE | 2017-06-03 12:35 | Infectious Disease Progress ---
Assessment and Plan (1) Cellulitis of knee Status: Acute Current Visit: Yes (2) Prepatellar abscess Status: Resolved Assessment and plan: Infection due to MRSA and much improved following I&D. He had an allergic reaction to sulfa manifestations of which have resolved. Recommendations: Patient okay to go home on oral clindamycin for 7-10 days. Recommended that he take probiotics (K[employer] Shraddha brand) with 30 million colonies per capsule, and/or kefir. He will follow with Dr. Kaur on discharge. Current Visit: Yes Infectious Disease - PN: Subj Interval history: Patient feeling better in general he thinks his rash is resolved. No recurrence of fever for the past 24 hours. He wants to go home today. Denies any left knee pain. Infectious Disease Exam (PN) - Constitutional Vitals: Temp Pulse Resp BP Pulse Ox 97.8 F 54 L 18 103/60 96 06/03/17 11:20 06/03/17 11:20 06/03/17 11:20 06/03/17 11:20 06/03/17 11:20 General appearance: mild distress Exam: General appearance: no acute distress - Eye Eye exam: Present: EOMI. no icterus Pupils: Present: ROSHNI - ENT ENT exam: no oropharyhgeal exudates - Respiratory Respiratory exam: vesicular BS, no crepitations or wheezes - Cardiovascular Cardiovascular exam: regular rate and rhythm, no murmurs - GI/Abdominal GI/Abdominal exam: normal bowel sounds, soft, non-tender, no organomegaly or mass - Extremities Exam Extremities exam: Wound to left knee noted with a little sloughing material, minimal surrounding erythema, no significant tenderness on palpation and he has good range of movement of the knee - Skin Skin exam: Skin rash has resolved Results - Labs CBC & BMP: 06/03/17 04:32 06/03/17 04:32 Lab Results: I have reviewed the past 24 hour labs (Leukocytosis resolved today) Specialty Discharge - Follow Up or Referrals Follow up with: Jl Kaur Jr., MD [Physician] - 06/15/17 9:00 am
== END 2017-06-03 12:15 | disposition home or self-care (01) | DRG 558 ==
LOC: N.ED 21:04 → SUATTDRO 23:52 → N.EDINP 23:52 → N.3E 05-27 00:50
PROVIDERS: ADMIT Internal Medicine; ATTEND Internal Medicine

== ENCOUNTER 2017-10-13 21:37 | Inpatient (IN) ==
[2017-10-14] MEDS ORDERED: SODIUM CHLORIDE 0.9% 2,400 ML IV ONE (00:42)
[2017-10-14] MEDS ORDERED: VANCOMYCIN INJ 1,000 MG in SODIUM CHLORIDE 0.9% 250 ML IV STA (00:44)
[2017-10-14] MEDS ORDERED: CEFEPIME 2,000 MG in SODIUM CHLORIDE 0.9% 100 ML IV STA (00:45)
[2017-10-14] MEDS ORDERED: CEFEPIME 2,000 MG in SYRINGE 1 EACH IV STA (00:49)
[2017-10-14] MEDS ORDERED: VANCOMYCIN 1,000 MG VIAL ONE (01:02)
[2017-10-14 01:43] LABS: Lactic Acid 0.9 MMOL/L (0.4-2.0)
[2017-10-14 01:44] LABS: Albumin 3.6 G/DL (3.4-5.0); Bilirubin,Total 0.5 MG/DL (0.2-1.0); Calcium 8.9 MG/DL (8.5-10.1); Osmolality,Calculated 271.8 MOS/KG (273-304); Potassium 3.9 MMOL/L (3.5-5.1); Total Protein 7.5 G/DL (6.4-8.3)
[2017-10-14 02:10] LABS: Basophils # 0.1 10*3/uL (0.0-0.2); Basophils % 0.7 % (0.0-0.8); Eosinophils # 0.7 10*3/uL (0.0-0.87); Eosinophils % 6.5 % (0.00-10.9); Hematocrit 41.4 VOL% (42.0-52.0); Immature Granulocytes % 0.3 %; Immature Granulocytes Absolute 0.03 #; Lymphocytes % 26.7 % (21.2-54.2); Mean Corpuscular HGB Conc 33.8 GM/DL (32-36); Mean Corpuscular Hemoglobin 30 PG (27-34); Mean Corpuscular Volume 89.6 FL (87-102); Mean Platelet Volume 11.1 FL (9.6-12.0); Monocytes # 1.2 10*3/uL (0.11-0.8); Monocytes % 11.1 % (1.7-12.7); Neutrophils # 6.1 10*3/uL (1.4-7.4); Neutrophils % 54.7 % (38.7-73.9); Platelet Count 259 T/CUMM (130-400); Red Blood Count 4.62 MC/CUMM (3.8-5.5); Red Cell Distribution Width 13.7 % (9.3-17.3); White Blood Count 11.1 T/CUMM (4-12)
[2017-10-14] MEDS ORDERED: ONDANSETRON 4 MG/2 ML VIAL IV PRN (04:39)
[2017-10-14 06:03] LABS: Apearance,Urine CLEAR (Clear); Bacteria,Urine Occasional /HPF (Few); Bilirubin,Urine Negative (Negative); Blood, Urine Negative (Negative); Glucose,Urine (UA) Negative (Negative); Ketones,Urine Negative (Negative); Mucus,Urine Occasional /LPF (Occasional); Nitrite,Urine Negative (Negative); Protein,Urine Negative; RBC,Urine <1 /HPF (0-4); Squamous Epithelial Cell,Urine Occasional /HPF (0-10); Urine Color Yellow (Yellow); Urine Specific Gravity 1.006 (1.001-1.035); Urine Urobilinogen < 2.0 EU/DL (0.2-1.0); WBC,Urine <1 /HPF (0-6)
[2017-10-14] MEDS: PANTOPRAZOLE 40 MG TABLET PO SCH (10:05)
[2017-10-14] MEDS: VANCOMYCIN INJ 1,250 MG in SODIUM CHLORIDE 0.45% 250 ML IV SCH ×2 (10:31→17:30)
[2017-10-14] MEDS: ENOXAPARIN 40 MG/0.4 ML SYRINGE SUBCUT SCH (20:31)
[2017-10-15] MEDS: VANCOMYCIN INJ 1,250 MG in SODIUM CHLORIDE 0.45% 250 ML IV SCH (02:45)
[2017-10-15 03:04] LABS: Basophils # 0.1 10*3/uL (0.0-0.2); Eosinophils # 0.8 10*3/uL (0.0-0.87); Eosinophils % 8.7 % (0.00-10.9); Hematocrit 42.1 VOL% (42.0-52.0); Hemoglobin 13.8 GM/DL (14.0-18.0); Immature Granulocytes % 0.2 %; Immature Granulocytes Absolute 0.02 #; Lymphocytes # 2.3 10*3/uL (1.4-4.0); Lymphocytes % 26.9 % (21.2-54.2); Mean Corpuscular HGB Conc 32.8 GM/DL (32-36); Mean Corpuscular Hemoglobin 30 PG (27-34); Mean Platelet Volume 10.9 FL (9.6-12.0); Monocytes # 1.2 10*3/uL (0.11-0.8); Monocytes % 14.3 % (1.7-12.7); Neutrophils # 4.2 10*3/uL (1.4-7.4); Neutrophils % 48.9 % (38.7-73.9); Platelet Count 261 T/CUMM (130-400); Red Blood Count 4.68 MC/CUMM (3.8-5.5); Red Cell Distribution Width 13.9 % (9.3-17.3); White Blood Count 8.6 T/CUMM (4-12)
[2017-10-15 03:16] LABS: Calcium 8.6 MG/DL (8.5-10.1); Osmolality,Calculated 278.4 MOS/KG (273-304)
[2017-10-15 03:19] LABS: Albumin 3.1 G/DL (3.4-5.0); Bilirubin,Total 0.9 MG/DL (0.2-1.0); Calcium 8.7 MG/DL (8.5-10.1); Osmolality,Calculated 280.3 MOS/KG (273-304); Potassium 3.9 MMOL/L (3.5-5.1)
[2017-10-15] MEDS ORDERED: fentaNYL 100 MCG/2 ML VIAL ONE (10:01)
[2017-10-15] MEDS ORDERED: MIDAZOLAM 2 MG/2 ML VIAL ONE (10:01)
[2017-10-15] MEDS ORDERED: ONDANSETRON 4 MG/2 ML VIAL ONE (10:01)
[2017-10-15] MEDS ORDERED: PROPOFOL 200 MG/20 ML VIAL IV ONE (10:02)
[2017-10-15] MEDS ORDERED: SODIUM CHLORIDE 0.9% 100 ML IV ONE (10:02)
[2017-10-15] MEDS: PANTOPRAZOLE 40 MG TABLET PO SCH (10:41)
[2017-10-15] MEDS: VANCOMYCIN INJ 1,000 MG in SODIUM CHLORIDE 0.9% 250 ML IV SCH (16:50)
[2017-10-15] MEDS: ENOXAPARIN 40 MG/0.4 ML SYRINGE SUBCUT SCH (20:39)
[2017-10-16] MEDS: VANCOMYCIN INJ 1,000 MG in SODIUM CHLORIDE 0.9% 250 ML IV SCH (05:05)
[2017-10-16 08:15] VITALS: BP 109/65
[2017-10-16] MEDS: PANTOPRAZOLE 40 MG TABLET PO SCH (09:17)
== END 2017-10-16 11:40 | disposition home or self-care (01) | DRG 603 ==
LOC: N.ED 21:37 → N.EDINP 10-14 04:39 → SUATTDRO 10-14 04:39 → N.2E 10-14 05:16
PROVIDERS: ATTEND Internal Medicine Nephrology

== ENCOUNTER 2017-12-23 17:40 | Inpatient (IN) ==
[2017-12-23 19:25] LABS: Basophils # 0.1 10*3/uL (0.0-0.2); Basophils % 1.2 % (0.0-0.8); Eosinophils # 0.6 10*3/uL (0.0-0.87); Eosinophils % 9.7 % (0.00-10.9); Hematocrit 35.9 VOL% (42.0-52.0); Hemoglobin 12.4 GM/DL (14.0-18.0); Immature Granulocytes % 0.2 %; Immature Granulocytes Absolute 0.01 #; Lymphocytes # 2.3 10*3/uL (1.4-4.0); Lymphocytes % 35.3 % (21.2-54.2); Mean Corpuscular HGB Conc 34.5 GM/DL (32-36); Mean Corpuscular Hemoglobin 31 PG (27-34); Mean Corpuscular Volume 89.1 FL (87-102); Mean Platelet Volume 9.9 FL (9.6-12.0); Monocytes # 0.7 10*3/uL (0.11-0.8); Monocytes % 10.9 % (1.7-12.7); Neutrophils # 2.8 10*3/uL (1.4-7.4); Neutrophils % 42.7 % (38.7-73.9); Platelet Count 257 T/CUMM (130-400); Red Blood Count 4.03 MC/CUMM (3.8-5.5); Red Cell Distribution Width 14.1 % (9.3-17.3); White Blood Count 6.5 T/CUMM (4-12)
[2017-12-23 19:46] LABS: Albumin 3.3 G/DL (3.4-5.0); Bilirubin,Total 0.5 MG/DL (0.2-1.0); Calcium 8.2 MG/DL (8.5-10.1); Lactic Acid 0.7 MMOL/L (0.4-2.0); Osmolality,Calculated 280.4 MOS/KG (273-304); Potassium 3.6 MMOL/L (3.5-5.1); Total Protein 7.3 G/DL (6.4-8.3)
[2017-12-23 20:35] LABS: HIV Antigen/Antibody Result Nonreactive (Nonreactive)
[2017-12-23 20:46] LABS: Apearance,Urine CLEAR (Clear); Bilirubin,Urine Negative (Negative); Blood, Urine Negative (Negative); Glucose,Urine (UA) Negative (Negative); Ketones,Urine Negative (Negative); Mucus,Urine Occasional /LPF (Occasional); Nitrite,Urine Negative (Negative); Protein,Urine Negative; RBC,Urine 1 /HPF (0-4); Urine Color Yellow (Yellow); Urine Specific Gravity 1.018 (1.001-1.035); Urine Urobilinogen < 2.0 EU/DL (0.2-1.0); WBC,Urine 1 /HPF (0-6)
[2017-12-23 20:52] LABS: Barbiturates Screen,Urine Negative (Negative); Benzodiazepines Screen,Urine Negative (Negative); Cannabinoid Screen,Urine Negative (Negative); Opiate Screen,Urine Negative (Negative); Phencyclidine Screen,Urine Negative (Negative)
[2017-12-23] MEDS ORDERED: ONDANSETRON 4 MG/2 ML VIAL IV PRN (20:52)
[2017-12-23] MEDS ORDERED: traZODone 50 MG TABLET PO PRN (20:52)
[2017-12-23] MEDS: SODIUM CHLORIDE 0.9% 1,000 ML IV SCH (21:58)
[2017-12-23] MEDS: ceFAZolin 1,000 MG in SYRINGE 1 EACH IV SCH (21:59)
[2017-12-23] MEDS: ENOXAPARIN 40 MG/0.4 ML SYRINGE SUBCUT SCH (21:59)
[2017-12-23] MEDS: VANCOMYCIN INJ 1,000 MG in SODIUM CHLORIDE 0.9% 250 ML IV SCH (22:30)
[2017-12-24 03:32] LABS: Basophils # 0.1 10*3/uL (0.0-0.2); Basophils % 1.6 % (0.0-0.8); Eosinophils # 0.7 10*3/uL (0.0-0.87); Eosinophils % 12.8 % (0.00-10.9); Hematocrit 34.7 VOL% (42.0-52.0); Hemoglobin 11.6 GM/DL (14.0-18.0); Immature Granulocytes % 0.3 %; Immature Granulocytes Absolute 0.02 #; Lymphocytes # 2.1 10*3/uL (1.4-4.0); Lymphocytes % 36.6 % (21.2-54.2); Mean Corpuscular HGB Conc 33.4 GM/DL (32-36); Mean Corpuscular Hemoglobin 30 PG (27-34); Mean Corpuscular Volume 89.4 FL (87-102); Monocytes # 0.7 10*3/uL (0.11-0.8); Monocytes % 11.7 % (1.7-12.7); Neutrophils # 2.1 10*3/uL (1.4-7.4); Platelet Count 254 T/CUMM (130-400); Red Blood Count 3.88 MC/CUMM (3.8-5.5); Red Cell Distribution Width 14.5 % (9.3-17.3); White Blood Count 5.8 T/CUMM (4-12)
[2017-12-24 03:51] LABS: Calcium 7.7 MG/DL (8.5-10.1); Osmolality,Calculated 278.4 MOS/KG (273-304); Potassium 3.7 MMOL/L (3.5-5.1)
[2017-12-24] MEDS: ceFAZolin 1,000 MG in SYRINGE 1 EACH IV SCH ×3 (05:05→21:59)
[2017-12-24] MEDS: VANCOMYCIN INJ 1,000 MG in SODIUM CHLORIDE 0.9% 250 ML IV SCH ×3 (05:10→22:03)
[2017-12-24 05:33] LABS: Band Neutrophils 3 % (0-10); Eosinophils 8 % (0-10); Lymphocytes 56 % (20-55); Myelocytes 1 %; Segmented Neutrophils 32 % (50-85)
[2017-12-24 05:34] LABS: Platelet Estimate Normal; Total Cells Counted 100
[2017-12-24] MEDS ORDERED: PROPOFOL 200 MG/20 ML VIAL IV ONE (11:10)
[2017-12-24] MEDS ORDERED: fentaNYL 100 MCG/2 ML VIAL ONE (11:10)
[2017-12-24] MEDS ORDERED: MIDAZOLAM 2 MG/2 ML VIAL ONE (11:10)
[2017-12-24] MEDS: SODIUM CHLORIDE 0.9% 1,000 ML IV SCH ×2 (11:24→14:01)
[2017-12-24] MEDS: PANTOPRAZOLE 40 MG TABLET PO SCH (11:25)
[2017-12-24] MEDS: ENOXAPARIN 40 MG/0.4 ML SYRINGE SUBCUT SCH (21:59)
[2017-12-25] MEDS: ceFAZolin 1,000 MG in SYRINGE 1 EACH IV SCH ×3 (06:00→21:27)
[2017-12-25] MEDS: SODIUM CHLORIDE 0.9% 1,000 ML IV SCH ×4 (06:00→23:06)
[2017-12-25] MEDS: VANCOMYCIN INJ 1,000 MG in SODIUM CHLORIDE 0.9% 250 ML IV SCH ×3 (06:05→21:29)
[2017-12-25 06:12] LABS: Basophils # 0.1 10*3/uL (0.0-0.2); Eosinophils # 0.9 10*3/uL (0.0-0.87); Eosinophils % 14.7 % (0.00-10.9); Hematocrit 35.3 VOL% (42.0-52.0); Hemoglobin 12.1 GM/DL (14.0-18.0); Immature Granulocytes % 0.2 %; Immature Granulocytes Absolute 0.01 #; Lymphocytes # 1.7 10*3/uL (1.4-4.0); Mean Corpuscular HGB Conc 34.3 GM/DL (32-36); Mean Corpuscular Hemoglobin 30 PG (27-34); Mean Corpuscular Volume 88.7 FL (87-102); Mean Platelet Volume 10.7 FL (9.6-12.0); Monocytes # 0.8 10*3/uL (0.11-0.8); Monocytes % 13.5 % (1.7-12.7); Neutrophils # 2.5 10*3/uL (1.4-7.4); Neutrophils % 41.6 % (38.7-73.9); Platelet Count 225 T/CUMM (130-400); Red Blood Count 3.98 MC/CUMM (3.8-5.5); Red Cell Distribution Width 14.8 % (9.3-17.3); White Blood Count 5.9 T/CUMM (4-12)
[2017-12-25 06:43] LABS: Eosinophils 13 % (0-10); Lymphocytes 30 % (20-55); Platelet Estimate Normal; Segmented Neutrophils 52 % (50-85); Total Cells Counted 100
[2017-12-25 06:45] LABS: Calcium 7.6 MG/DL (8.5-10.1); Osmolality,Calculated 279.3 MOS/KG (273-304); Potassium 3.7 MMOL/L (3.5-5.1)
[2017-12-25] MEDS: PANTOPRAZOLE 40 MG TABLET PO SCH (09:59)
[2017-12-25] MEDS: ENOXAPARIN 40 MG/0.4 ML SYRINGE SUBCUT SCH (21:28)
[2017-12-26] MEDS: ceFAZolin 1,000 MG in SYRINGE 1 EACH IV SCH (05:56)
[2017-12-26] MEDS: VANCOMYCIN INJ 1,000 MG in SODIUM CHLORIDE 0.9% 250 ML IV SCH ×2 (05:59→19:01)
[2017-12-26] MEDS: PANTOPRAZOLE 40 MG TABLET PO SCH (09:47)
[2017-12-26] MEDS: SODIUM CHLORIDE 0.9% 1,000 ML IV SCH ×4 (11:20→23:11)
[2017-12-26] MEDS: ENOXAPARIN 40 MG/0.4 ML SYRINGE SUBCUT SCH (20:41)
[2017-12-27] MEDS: VANCOMYCIN INJ 1,000 MG in SODIUM CHLORIDE 0.9% 250 ML IV SCH (05:38)
[2017-12-27] MEDS: SODIUM CHLORIDE 0.9% 1,000 ML IV SCH (05:40)
[2017-12-27] MEDS: PANTOPRAZOLE 40 MG TABLET PO SCH (09:50)
[2017-12-27 13:18] VITALS: BP 124/70
== END 2017-12-27 13:03 | disposition home or self-care (01) | DRG 603 ==
LOC: N.ED 17:40 → SUATTDRO 19:35 → N.EDINP 19:35 → N.3E 20:48
PROVIDERS: ADMIT Internal Medicine; ATTEND Internal Medicine

== ENCOUNTER 2018-02-03 23:15 | Inpatient (IN) ==
[2018-02-04] MEDS ORDERED: VANCOMYCIN INJ 1,000 MG in SODIUM CHLORIDE 0.9% 250 ML IV STA (02:44)
[2018-02-04] MEDS ORDERED: ceFAZolin 2,000 MG in SODIUM CHLORIDE 0.9% 100 ML IV STA ×2 (02:44→03:39)
[2018-02-04 03:34] LABS: Lactic Acid 1.3 MMOL/L (0.4-2.0)
[2018-02-04] MEDS ORDERED: VANCOMYCIN 1,000 MG VIAL ONE (03:35)
[2018-02-04] MEDS ORDERED: ceFAZolin 1,000 MG VIAL ONE (03:35)
[2018-02-04] MEDS ORDERED: MORPHINE 4 MG/1 ML VIAL IV STA (04:27)
[2018-02-04] MEDS ORDERED: ONDANSETRON 4 MG/2 ML VIAL IV STA (04:27)
[2018-02-04] MEDS ORDERED: ONDANSETRON 4 MG/2 ML VIAL ONE (04:44)
[2018-02-04] MEDS ORDERED: MORPHINE 10 MG/1 ML VIAL ONE (04:45)
[2018-02-04 05:00] LABS: Calcium 9.1 MG/DL (8.5-10.1)
[2018-02-04 05:01] LABS: Albumin 3.2 G/DL (3.4-5.0); Basophils # 0.1 10*3/uL (0.0-0.2); Bilirubin,Total 0.5 MG/DL (0.2-1.0); Eosinophils # 0.7 10*3/uL (0.0-0.87); Eosinophils % 7.1 % (0.00-10.9); Hemoglobin 12.7 GM/DL (14.0-18.0); Immature Granulocytes % 0.2 %; Immature Granulocytes Absolute 0.02 #; Lymphocytes % 32.8 % (21.2-54.2); Mean Corpuscular HGB Conc 34.3 GM/DL (32-36); Mean Corpuscular Hemoglobin 31 PG (27-34); Mean Corpuscular Volume 89.4 FL (87-102); Mean Platelet Volume 11.4 FL (9.6-12.0); Monocytes # 1.1 10*3/uL (0.11-0.8); Monocytes % 11.7 % (1.7-12.7); Neutrophils # 4.3 10*3/uL (1.4-7.4); Neutrophils % 47.2 % (38.7-73.9); Osmolality,Calculated 274.7 MOS/KG (273-304); Platelet Count 250 T/CUMM (130-400); Potassium 3.7 MMOL/L (3.5-5.1); Red Blood Count 4.14 MC/CUMM (3.8-5.5); Red Cell Distribution Width 15.8 % (9.3-17.3); Total Protein 7.7 G/DL (6.4-8.3); White Blood Count 9.2 T/CUMM (4-12)
[2018-02-04] MEDS ORDERED: ONDANSETRON 4 MG/2 ML VIAL IV PRN (06:03)
[2018-02-04] MEDS ORDERED: HYDROmorphone 2 MG/1 ML VIAL IV PRN (06:14)
[2018-02-04] MEDS ORDERED: VANCOMYCIN INJ 1,000 MG in SODIUM CHLORIDE 0.9% 250 ML IV SCH (06:30)
[2018-02-04] MEDS ORDERED: RIFAMPIN INJ 600 MG in SODIUM CHLORIDE 0.9% 100 ML IV SCH (08:00)
[2018-02-04] MEDS ORDERED: VANCOMYCIN INJ 500 MG in SODIUM CHLORIDE 0.9% 100 ML IV ONE (08:20)
[2018-02-04] MEDS ORDERED: PROMETHAZINE 25 MG/1 ML VIAL IM PRN (09:28)
[2018-02-04] MEDS ORDERED: HYDROmorphone 2 MG/1 ML VIAL IM PRN (09:29)
[2018-02-04] MEDS: SODIUM CHLORIDE 0.9% 1,000 ML IV SCH (10:16)
[2018-02-04] MEDS: RIFAMPIN 300 MG CAPSULE PO SCH ×2 (10:18→20:35)
[2018-02-04] MEDS: oxyCODONE/ACETAMINOPHEN 5-325 MG TABLET PO PRN ×2 (10:19→18:00)
[2018-02-04 10:40] LABS: Amorphous Crystals,Urine Occasional /HPF (Few); Apearance,Urine Slightly Hazy (Clear); Bacteria,Urine Occasional /HPF (Few); Bilirubin,Urine Negative (Negative); Blood, Urine Negative (Negative); Glucose,Urine (UA) Negative (Negative); Ketones,Urine Negative (Negative); Mucus,Urine Occasional /LPF (Occasional); Nitrite,Urine Negative (Negative); Protein,Urine Negative; Squamous Epithelial Cell,Urine Occasional /HPF (0-10); Urine Color Yellow (Yellow); Urine Specific Gravity 1.009 (1.001-1.035); Urine Urobilinogen < 2.0 EU/DL (0.2-1.0); WBC,Urine <1 /HPF (0-6)
[2018-02-04] MEDS: VANCOMYCIN INJ 1,000 MG in SODIUM CHLORIDE 0.9% 250 ML IV SCH (15:38)
[2018-02-05 03:40] LABS: Basophils # 0.1 10*3/uL (0.0-0.2); Basophils % 0.9 % (0.0-0.8); Eosinophils # 0.7 10*3/uL (0.0-0.87); Eosinophils % 10.4 % (0.00-10.9); Hemoglobin 12.7 GM/DL (14.0-18.0); Immature Granulocytes % 0.1 %; Immature Granulocytes Absolute 0.01 #; Lymphocytes # 1.9 10*3/uL (1.4-4.0); Lymphocytes % 27.8 % (21.2-54.2); Mean Corpuscular HGB Conc 34.3 GM/DL (32-36); Mean Corpuscular Hemoglobin 31 PG (27-34); Mean Corpuscular Volume 89.2 FL (87-102); Mean Platelet Volume 10.6 FL (9.6-12.0); Monocytes # 0.9 10*3/uL (0.11-0.8); Monocytes % 12.9 % (1.7-12.7); Neutrophils # 3.4 10*3/uL (1.4-7.4); Neutrophils % 47.9 % (38.7-73.9); Platelet Count 255 T/CUMM (130-400); Red Blood Count 4.15 MC/CUMM (3.8-5.5); Red Cell Distribution Width 15.9 % (9.3-17.3)
[2018-02-05 04:09] LABS: Albumin 2.8 G/DL (3.4-5.0); Bilirubin,Total 1.3 MG/DL (0.2-1.0); Calcium 8.1 MG/DL (8.5-10.1); Osmolality,Calculated 276.4 MOS/KG (273-304); Total Protein 6.6 G/DL (6.4-8.3)
[2018-02-05] MEDS: VANCOMYCIN INJ 1,000 MG in SODIUM CHLORIDE 0.9% 250 ML IV SCH ×3 (04:50→18:14)
[2018-02-05] MEDS: SODIUM CHLORIDE 0.9% 1,000 ML IV SCH ×2 (04:51→20:35)
[2018-02-05] MEDS ORDERED: LIDOCAINE 1% 20 ML VIAL MISC INJ ONE (08:15)
[2018-02-05] MEDS: RIFAMPIN 300 MG CAPSULE PO SCH ×2 (08:37→20:35)
[2018-02-05] MEDS: oxyCODONE/ACETAMINOPHEN 5-325 MG TABLET PO PRN ×2 (09:09→17:23)
[2018-02-06] MEDS: oxyCODONE/ACETAMINOPHEN 5-325 MG TABLET PO PRN ×3 (01:44→20:20)
[2018-02-06] MEDS: VANCOMYCIN INJ 1,000 MG in SODIUM CHLORIDE 0.9% 250 ML IV SCH ×3 (02:38→18:35)
[2018-02-06] MEDS: RIFAMPIN 300 MG CAPSULE PO SCH ×2 (08:54→20:20)
[2018-02-06] MEDS: SODIUM CHLORIDE 0.9% 1,000 ML IV SCH (20:20)
[2018-02-07] MEDS: VANCOMYCIN INJ 1,000 MG in SODIUM CHLORIDE 0.9% 250 ML IV SCH ×2 (02:51→09:06)
[2018-02-07] MEDS: RIFAMPIN 300 MG CAPSULE PO SCH (09:06)
[2018-02-07 11:24] VITALS: BP 124/75
[2018-02-07] MEDS: SODIUM CHLORIDE 0.9% 1,000 ML IV SCH (17:16)
== END 2018-02-07 17:07 | disposition home or self-care (01) | DRG 603 ==
LOC: N.ED 23:15 → SUATTDRO 02-04 05:46 → N.EDINP 02-04 05:46 → N.3E 02-04 06:48
PROVIDERS: ADMIT Internal Medicine; ATTEND Internal Medicine Geriatric Medicine

== ENCOUNTER 2018-12-28 17:17 | Observation (INO) ==
[2018-12-28 19:19] LABS: Basophils # 0.1 10*3/uL (0.0-0.2); Basophils % 0.6 % (0.0-0.8); Eosinophils # 0.7 10*3/uL (0.0-0.87); Hematocrit 43.8 VOL% (42.0-52.0); Hemoglobin 13.6 GM/DL (14.0-18.0); Immature Granulocytes % 0.5 %; Immature Granulocytes Absolute 0.07 #; Lymphocytes # 2.1 10*3/uL (1.4-4.0); Lymphocytes % 15.5 % (21.2-54.2); Mean Corpuscular HGB Conc 31.1 GM/DL (32-36); Mean Corpuscular Hemoglobin 29 PG (27-34); Mean Corpuscular Volume 92.4 FL (87-102); Mean Platelet Volume 10.2 FL (9.6-12.0); Monocytes # 1.5 10*3/uL (0.11-0.8); Monocytes % 11.1 % (1.7-12.7); Neutrophils # 9.1 10*3/uL (1.4-7.4); Neutrophils % 67.3 % (38.7-73.9); Platelet Count 367 T/CUMM (130-400); Red Blood Count 4.74 MC/CUMM (3.8-5.5); Red Cell Distribution Width 14.4 % (9.3-17.3); White Blood Count 13.5 T/CUMM (4-12)
[2018-12-28 19:44] LABS: Osmolality,Calculated 272.7 MOS/KG (273-304); Potassium 4.3 MMOL/L (3.5-5.1)
[2018-12-28] MEDS ORDERED: KETOROLAC 30 MG/1 ML VIAL IV STA (20:45)
[2018-12-28] MEDS ORDERED: CLINDAMYCIN INJ 900 MG in PREMIX 1 EACH IV STA (20:45)
[2018-12-28] MEDS ORDERED: methylPREDNISolone SOD SUC 125 MG/2 ML VIAL IV STA (20:45)
[2018-12-28] MEDS ORDERED: VANCOMYCIN INJ 1,000 MG in SODIUM CHLORIDE 0.9% 250 ML IV STA (20:50)
[2018-12-28 21:03] LABS: INR 0.9; PT Patient Result 9.9 SECS; Partial Thromboplastin Time 26.4 SECS (0-40)
[2018-12-28] MEDS ORDERED: MORPHINE 4 MG/1 ML VIAL IV PRN (23:30)
[2018-12-28] MEDS ORDERED: ACETAMINOPHEN 325 MG TABLET PO PRN (23:30)
[2018-12-28] MEDS ORDERED: NICOTINE 21 MG/24 HR PATCH TRANSDERM PRN (23:30)
[2018-12-28] MEDS ORDERED: ONDANSETRON 4 MG/2 ML VIAL IV PRN (23:30)
[2018-12-29 00:19] LABS: Immunoglobulin A 450 MG/DL (70-400); Immunoglobulin G 1470 MG/DL (700-1600); Immunoglobulin M 207 MG/DL (40-230)
[2018-12-29] MEDS: SODIUM CHLORIDE 0.9% 1,000 ML IV SCH ×2 (00:31→08:51)
[2018-12-29] MEDS: PIPERACILLIN/TAZOBACTAM 3,375 MG in SODIUM CHLORIDE 0.9% 100 ML IV SCH ×2 (00:32→13:05)
[2018-12-29 04:30] LABS: Basophils % 0.3 % (0.0-0.8); Hemoglobin 13.2 GM/DL (14.0-18.0); Immature Granulocytes % 0.6 %; Immature Granulocytes Absolute 0.06 #; Lymphocytes # 1.1 10*3/uL (1.4-4.0); Lymphocytes % 10.8 % (21.2-54.2); Mean Corpuscular HGB Conc 32.2 GM/DL (32-36); Mean Corpuscular Hemoglobin 29 PG (27-34); Mean Corpuscular Volume 89.1 FL (87-102); Mean Platelet Volume 9.9 FL (9.6-12.0); Monocytes # 0.1 10*3/uL (0.11-0.8); Monocytes % 0.8 % (1.7-12.7); Neutrophils # 8.9 10*3/uL (1.4-7.4); Neutrophils % 87.5 % (38.7-73.9); Platelet Count 352 T/CUMM (130-400); Red Cell Distribution Width 14.4 % (9.3-17.3); White Blood Count 10.2 T/CUMM (4-12)
[2018-12-29 05:00] LABS: Calcium 8.9 MG/DL (8.5-10.1); Osmolality,Calculated 276.7 MOS/KG (273-304); Potassium 4.4 MMOL/L (3.5-5.1)
[2018-12-29] MEDS ORDERED: VANCOMYCIN INJ 1,000 MG in SODIUM CHLORIDE 0.9% 250 ML IV SCH (09:00)
[2018-12-29] MEDS ORDERED: FAMOTIDINE 20 MG TABLET PO ONE (09:06)
[2018-12-29] MEDS ORDERED: LIDOCAINE 1%/EPI INJ 20 ML VIAL ONE (09:32)
[2018-12-29] MEDS ORDERED: MUPIROCIN 2% OINT 22 GM TUBE TOP ONE (10:48)
[2018-12-29] MEDS ORDERED: PROPOFOL 200 MG/20 ML VIAL IV ONE (11:08)
[2018-12-29] MEDS ORDERED: MIDAZOLAM 2 MG/2 ML VIAL ONE (11:09)
[2018-12-29 12:09] VITALS: BP 140/91
[2018-12-29] MEDS ORDERED: CLOTRIMAZOLE/BETAMETHASONE CREAM 15 GM TUBE TOP SCH (17:31)
== END 2018-12-29 15:47 | disposition home or self-care (01) ==
LOC: N.ED 17:17 → INTOOBSV 23:30 → N.EDINP 23:30 → N.5E 23:58
PROVIDERS: ADMIT Internal Medicine; ATTEND Internal Medicine